=== PATIENT | male | born 1985 | race Caucasian/White ===

== ENCOUNTER → 2023-07-31 | Outpatient (CLI) | payer OTHER ==
[~2023-07-31] MED LIST: ISOVUE-300 61% 100ML VIAL As Ordered ONE; LIDOCAINE 1% MDV 20ML VIAL As Ordered ONE; PROHANCE 279.3MG/ML 5ML VIAL As Ordered ONE
== END ==
LOC: M RAD 06:12
PROVIDERS: ATTEND Physician Assistant
DX: M25.512 Pain in left shoulder (principal); M67.814 Other specified disorders of tendon, left shoulder; R22.32 Localized swelling, mass and lump, left upper limb
CPT/HCPCS: 23350; 73223; 77002; A9576; Q9967